=== PATIENT | female | born 1980 | race Hispanic/Latino ===

== ENCOUNTER 2018-02-07 17:58 | Emergency (ER) | payer BC ==
[2018-02-07] MEDS ORDERED: MAGNE/ALUM HYDROXD 30 ML UCUP ONE (19:08)
[2018-02-07] MEDS ORDERED: LIDOCAINE VISCOUS 2% SOLN 15 ML UDC ONE (19:09)
[2018-02-07] MEDS ORDERED: MORPHINE 4 MG/ML SYR ONE ×2 (19:09→20:17)
[2018-02-07] MEDS ORDERED: ONDANSETRON 4 MG/2 ML VIAL ONE (19:09)
[2018-02-07] MEDS ORDERED: NA CHLORIDE 0.9% 1,000 ML ONE ×2 (19:09→20:17)
[2018-02-07] MEDS ORDERED: FAMOTIDINE 20 MG/2 ML VIAL IV ONE (19:09)
[2018-02-07 19:14] LABS: Absolute Lymphocytes (CBC) 1.8 K/uL (0.7-4.9); Absolute Monocytes 0.4 K/uL (0.1-1.3); Absolute Neutrophil 5.2 K/uL (1.8-8.0); Basophils % 0.4 % (0-1.3); Eosinophils % 0.8 % (0-4.4); Lymphocytes % 24.1 % (15.3-44.8); MCH 21.6 pg (27.0-35.0); MCV 67.4 fL (80-100); MPV 8.6 fL (7.6-11.3); Monocytes % 5.5 % (3.3-12.3); RBC Red Blood Cell Count 4.74 M/uL (3.86-4.86)
[2018-02-07 19:26] LABS: ALT/SGPT 29 U/L (12-78); AST/SGOT 17 U/L (15-37); Albumin 3.7 g/dL (3.4-5.0); Alkaline Phosphatase 64 U/L (45-117); Amylase Level 81 U/L (25-115); BUN Blood Urea Nitrogen 12 mg/dL (7-18); Bicarbonate 29 mmol/L (21-32); Bilirubin Direct < 0.1 mg/dL (0-0.2); Bilirubin Total 0.4 mg/dL (0.2-1.0); Glucose Level 96 mg/dL (74-106); Lipase 162 U/L (73-393); Potassium 3.3 mmol/L (3.5-5.1); Protein, Total 7.6 g/dL (6.4-8.2); Sodium Level 141 mmol/L (136-145)
[2018-02-07 20:11] LABS: Blood Morphology Comment NOTED (NOT SEEN); Platelet Estimate ADEQ; Urine White Blood Cell Casts OK
[2018-02-07 20:12] LABS: Anisocytosis 1+; Hypochromasia 1+
[2018-02-07] MEDS ORDERED: PANTOPRAZOLE 40 MG INJ ONE (20:17)
[2018-02-07] MEDS ORDERED: METOCLOPRAMIDE 10 MG/2mL INJ ONE (20:17)
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
--- NOTE | 2018-02-07 21:10 | EDPHYS ---
Physician Documentation [facility] Name: Anastasia Mai Age: 37 yrs Sex: Female : 1980 Arrival Date: 02/07/2018 Time: 18:02 Bed 6 Private MD: None, None ED Physician Waqas Lowe HPI: 02/07 18:56 This 37 yrs old Female presents to ER via Ambulatory with complaints of ma2 Vomiting. 18:56 The patient presents to the emergency department with nausea, vomiting, abdominal pain, ma2 of the epigastric area. Onset: The symptoms/episode began/occurred gradually, 1 day(s) ago. Associated signs and symptoms: Pertinent negatives: anorexia, belching, diarrhea, GI bleeding. Severity of symptoms: At their worst the symptoms were moderate. The patient has experienced similar episodes in the past. 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 - Social history:: Smoking status: Patient/guardian denies using tobacco, Patient/guardian denies using alcohol, street drugs, The patient lives with family. - Ebola Screening: : No symptoms or risks identified at this time. - Family history:: not pertinent. ROS: 18:56 Constitutional: Negative for fever, chills, and weight loss, Eyes: Negative for injury, ma2 pain, redness, and discharge, Cardiovascular: Negative for chest pain, palpitations, and edema, Respiratory: Negative for shortness of breath, cough, wheezing, and pleuritic chest pain, Abdomen/GI: Negative for abdominal pain, nausea, diarrhea, and constipation, Back: Negative for injury and pain. 18:56 Abdomen/GI: Positive for abdominal pain, vomiting, Negative for constipation, flatulence. Exam: 18:56 Constitutional: This is a well developed, well nourished patient who is awake, alert, ma2 and in no acute distress. Head/Face: Normocephalic, atraumatic. ENT: Nares patent. No nasal discharge, no septal abnormalities noted. Tympanic membranes are normal and external auditory canals are clear. Oropharynx with no redness, swelling, or masses, exudates, or evidence of obstruction, uvula midline. Mucous membranes moist. Chest/axilla: Normal chest wall appearance and motion. Nontender with no deformity. No lesions are appreciated. Cardiovascular: Regular rate and rhythm with a normal S1 and S2. No gallops, murmurs, or rubs. Normal PMI, no JVD. No pulse deficits. Respiratory: Lungs have equal breath sounds bilaterally, clear to auscultation and percussion. No rales, rhonchi or wheezes noted. No increased work of breathing, no retractions or nasal flaring. Abdomen/GI: Soft, non-tender, with normal bowel sounds. No distension or tympany. No guarding or rebound. No evidence of tenderness throughout. Vital Signs: 18:06 BP 148 / 98; Pulse 74; Resp 16 S; Temp 97.0(TE); Pulse Ox 99% on R/A; Weight 54.43 kg aa5 (R); Height 4 ft. 11 in. (149.86 cm) (R); Pain 7/10; 19:15 BP 133 / 96; Pulse 69; Resp 14; Pulse Ox 99% on R/A; bp 20:23 BP 140 / 102; Pulse 74; Resp 18; Pulse Ox 99% on R/A; tl2 21:15 BP 121 / 84; Pulse 69; Resp 14; Pulse Ox 97% ; cc3 18:06 Body Mass Index 24.24 (54.43 kg, 149.86 cm) aa5 MDM: 18:50 Patient medically screened. ma2 18:56 Differential diagnosis: Nonspecific abd pain, gastritis, pancreatitis, viral ma2 gastroenteritis, gastroenteritis. 21:08 Data reviewed: vital signs, nurses notes, EMS record. Counseling: I had a detailed al2 discussion with the patient and/or guardian regarding: the historical points, exam findings, and any diagnostic results supporting the discharge/admit diagnosis, the presence of at least one elevated blood pressure reading (>120/80) during this emergency department visit, the need for outpatient follow up. Response to treatment: the patient's symptoms have resolved after treatment. 02/07 18:56 Order name: Amylase, Serum; Complete Time: 19:47 ma2 02/07 18:56 Order name: Basic Metabolic Panel; Complete Time: 19:47 ma2 02/07 18:56 Order name: CBC with Diff ma2 02/07 18:56 Order name: Creatinine for Radiology; Complete Time: 19:47 ma2 02/07 18:56 Order name: Hepatic Function; Complete Time: 19:47 ma2 02/07 18:56 Order name: Lipase; Complete Time: 19:47 ma2 02/07 19:19 Order name: CBC Smear Scan EDMS 02/07 18:56 Order name: IV Saline Lock; Complete Time: 18:59 ma2 02/07 18:56 Order name: Labs collected and sent; Complete Time: 18:59 ma2 Administered Medications: 19:05 Drug: NS 0.9% 1000 ml Route: IV; Rate: 1 bolus; Site: left antecubital; bp 20:21 Follow up: IV Status: Completed infusion; IV Intake: 1000ml tl2 21:28 Follow up: IV Status: Completed infusion; IV Intake: 1000ml cc3 19:05 Drug: Zofran 4 mg Route: IVP; Site: left antecubital; bp 20:20 Follow up: Response: Nausea is decreased bp 20:22 Follow up: Response: No adverse reaction; Nausea unchanged tl2 19:05 Drug: GI Cocktail without - (Maalox Suspension 30 ml, Lidocaine Liquid 2 % 15 bp ml) Route: PO; 20:20 Follow up: Response: Nausea is decreased bp 20:22 Follow up: Response: No adverse reaction; Pain is unchanged, physician notified tl2 19:05 Drug: Pepcid 20 mg Route: IVP; Site: left antecubital; bp 20:19 Follow up: Response: Pain is decreased bp 19:05 Drug: morphine 4 mg Route: IVP; Site: left antecubital; bp 20:19 Follow up: Response: Pain is decreased bp 20:22 Follow up: Response: No adverse reaction; Pain is unchanged, physician notified tl2 20:20 Drug: Pantoprazole 40 mg Route: IVP; Site: left antecubital; tl2 21:28 Follow up: Response: No adverse reaction cc3 20:20 Drug: morphine 4 mg Route: IVP; Site: left antecubital; tl2 21:27 Follow up: Response: Pain is decreased cc3 20:21 Drug: Reglan 10 mg Route: IVP; Site: left antecubital; tl2 21:27 Follow up: Response: No adverse reaction; Pain is decreased cc3 20:21 Drug: NS 0.9% 1000 ml Route: IV; Rate: 1 bolus; Site: left antecubital; tl2 21:28 Follow up: IV Status: Completed infusion; IV Intake: 1000ml cc3 Disposition: 02/07/18 21:09 Discharged to Home. Impression: Pain localized to upper abdomen. - Condition is Stable. - Prescriptions for Zofran 4 mg Oral Tablet - take 1 tablet by ORAL route every 12 hours As needed; 20 tablet. Pepcid 20 mg Oral Tablet - take 1 tablet by ORAL route once daily for 10 days; 10 tablet. - Work release form, Medication Reconciliation Form, Thank You Letter, Antibiotic Education, Prescription Opioid Use form. - Follow up: Private Physician; When: Tomorrow; Reason: Continuance of care. - Problem is chronic. - Symptoms have improved. Signatures: Dispatcher [employer] EDMS Collette Amanda RN RN aa5 Elyse Yadav RN RN tl2 Mian Garcia RN RN Waqas Lowe MD MD ma2 Aline Pollard cc3 Corrections: (The following items were deleted from the chart) 21:32 21:09 02/07/2018 21:09 Discharged to Home. Impression: Pain localized to upper abdomen. cc3 Condition is Stable. Forms are Medication Reconciliation Form, Thank You Letter, Antibiotic Education, Prescription Opioid Use. Follow up: Private Physician; When: Tomorrow; Reason: Continuance of care. Problem is chronic. Symptoms have improved. ma2
== END 2018-02-07 21:32 | disposition home or self-care (01) ==
LOC: ER 17:58
DX: R10.13 Epigastric pain (principal); R11.10 Vomiting, unspecified
CPT/HCPCS: 36415; 80048; 80076; 82150; 83690; 85025; 96361; 96374; 96375; 99284; C9113; J2405; J2765; J7030

== ENCOUNTER 2018-10-05 17:22 | Emergency (ER) | payer BC ==
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
== END 2018-10-05 19:40 | disposition home or self-care (01) ==
LOC: ER 17:22
DX: M79.10 Myalgia, unspecified site (principal); M25.572 Pain in left ankle and joints of left foot; M25.532 Pain in left wrist; V49.49XA Driver injured in collision with other motor vehicles in traffic accident, initial encounter; Z88.8 Allergy status to other drugs, medicaments and biological substances
CPT/HCPCS: 71045; 99283

== ENCOUNTER 2021-04-29 11:21 | Emergency (ER) | payer BC ==
--- OUTSIDE RECORDS SUMMARY | 2021-04-29 11:25 | XMS REPORT | Continuity of Care Document ---
:1980 Author Organization [facility] t Address [address] [place] [address] Care Team Providers Name Role Phone DR LUIS ANN Attending Clinician Unavailable RONEN, Aly Attending Clinician Unavailable Therapy, Covid Infusion Attending Clinician Unavailable Ronen ACUÑA, Aly Attending Clinician Doctor Unassigned, Name Attending Clinician Unavailable DR LUIS ANN Admitting Clinician Unavailable Payers Payer Name Policy Type Policy Number Effective Date Expiration Date S ource [facility] [id number] 2020 00:00:00 Problems This patient has no known problems. Allergies, Adverse Reactions, Alerts Allergy Allergy Status Severity Reaction(s) Onset Inactive Treating Comm ents Source Name Type Date Date Clinician NO KNOWN Drug Active Univers ALLERGIE Class ity of S [facility] Social History Social Habit Start Date Stop Date Quantity Comments Source Sex Assigned At [birth year] [facility] 00:00:00 00:00:00 [facility] Branch Smoking Status Start Date Stop Date Source Unknown if ever smoked [facility] Medications Ordered Filled Start Stop Current Ordering Indication Dosage Frequency Signature Comments Components Source Medication Medication Date Date Medication? Clinician (SIG) Name Name casirivimab 2020- No [id number] 1200mg Univers -imdevimab 01-02 ity of (REGEN-COV 14:15: 14:34 [place] (EUA)) 00 :00 Medical 1,200 mg in Branch NaCl 0.9% (NS) 60 mL IV infusion casirivimab 2020- No [id number] 1200mg 1,200 mg, Univers -imdevimab 01-02 IV ity of (REGEN-COV 14:15: 14:34 [place] (EUA[place] 00 :00 ONCE, [facility] 1,200 mg in 01/02/21 at [facility] NaCl 0.9% 0915, For (NS) 60 mL 1 IV infusion dose
Ad teaching specialists as an IV infusion via pump or gravity over at least 60 minutes through an intravenou s line containing a sterile, in-line or add-on 0.2-micron polyethers ulfone (PES) filter.&nb sp;Stable 36 hours refrigerat ed; 4 hours at room temperatur e. &nbs p;
Vital Signs Vital Name Observation Time Observation Value Comments Source Systolic blood 2021-01-02 15:35:00 137 mm[Hg] Univer sity [facility] Diastolic blood 2021-01-02 15:35:00 85 mm[facility]Hg[facility] 2021-01-02 15:35:00 66 /min [facility] Body temperature 2021-01-02 15:35:00 36.56 [facility] Respiratory rate 2021-01-02 15:35:00 18 /min [facility] Oxygen saturation in 2021-01-02 15:35:00 99 /min [facility] Arterial blood by [facility] Pulse oximetry [place] Body height 2021-01-02 13:06:00 149.9 cm [facility] Body weight 2021-01-02 13:06:00 55.339 kg [facility] BMI 2021-01-02 13:06:00 24.64 kg/m2 [facility] Procedures Procedure Date / Time Performed Performing Clinician Raymond joel [id number] CONSENT 2021-01-02 05:01:00 [facility]igned, [facility] Start End Encounter Admission Attending Care Care Encounter Source Date/Time Date/Time Type Type Clinicians Facility Department ID 2021-04-23 2021-04-23 Outpatient IAM WARNER TRAVRAHSC [id number] [facility] 13:51:00 18:55:00 [facility] 2021-02-24 2021-02-24 Outpatient IAM WARNER TRAVISASC [id number] [facility] 10:42:00 15:45:00 [facility] 2021-01-02 2021-01-02 Outpatient R RONEN [facility] [id number] Univers 08:00:00 08:00:00 STEVEN ity of [facility] 2021-01-02 2021-01-02 Nurse Therapy, Adc Covid Infusion [facility] [id number] Univers 07:19:32 07:49:32 Visit Steven Hardwick [id number] ity [id number] [facility] [id number] [facility] 053 Branch 2021-01-02 2021-01-02 Orders Doctor MALINDA [id number] Univers 00:00:00 00:00:00 Only Unassigned, LUKE [id number] ity of [place] [facility] [id number] Shamir as [id number] [facility] 009 Branch Results Test Description Test Time Test Comments Results Result Comments Source URINE MONOCLONALELITE 2021-02-24 12:59:00 Test Item Value Reference Range Interpretation Comme nts PREG UR (test code = PGU) NEGATIVE NEGATIVE
--- NOTE | 2021-04-29 12:00 | ER ---
Nurse's Notes [facility] Name: Anastasia Wiseman Age: 40 yrs Sex: Female : 1980 Arrival Date: 04/29/2021 Time: 11:22 Bed Waiting Private MD: Diagnosis: ED Course: 04/29 11:22 Patient arrived in ED. ds1 Administered Medications: No medications were administered Outcome: 12:00 Patient left the ED. ld1 Signatures: Iveth Marc ds1 Radha Alegria, RN RN ld1
== END 2021-04-29 12:00 | disposition left against medical advice (07) ==
LOC: ER 11:21
DX: Z02.9 Encounter for administrative examinations, unspecified (principal)

== ENCOUNTER 2022-04-21 07:36 | Day surgery (SDC) | payer BC ==
[2022-04-16 15:57] LABS: Absolute Lymphocytes (CBC) 2.1 K/uL (0.7-4.9); Hematocrit 31.3 % (36.0-45.0); Lymphocytes % 27.5 % (15.3-44.8); MCV 64.8 fL (80-100); MPV 8.5 fL (7.6-11.3); RBC Red Blood Cell Count 4.82 M/uL (3.86-4.86)
[2022-04-16 16:02] LABS: Protime INR 1.02
[2022-04-16 16:03] LABS: Blood Morphology Comment NOTED (NOT SEEN); Hypochromasia 1+; Platelet Estimate ADEQ; White Blood Cell Scan OK (OK)
[2022-04-16 16:11] LABS: Potassium 3.4 mmol/L (3.5-5.1)
--- NOTE | 2022-04-18 19:17 | EKG ---
Test Date: 2022-04-16 Test Time: 15:38:38 Elementary Spanish Teacher: OLENA MEASUREMENT RESULTS: Intervals: Rate: 63 UT: 156 QRSD: 66 QT: 412 QTc: 421 [place]: P: 73 UT: 156 QRS: 37 T: 36 INTERPRETIVE STATEMENTS: Normal sinus rhythm Nonspecific ST and T wave abnormality Abnormal ECG No previous ECG available for comparison Electronically Signed On 04-18-22 19:10:56 CAUSTIC STRENGTH INSPECTOR by Manny Horowitz
[2022-04-21] MEDS ORDERED: NA CHLORIDE 0.9% 500 ML ONE (07:43)
[2022-04-21] MEDS ORDERED: HEPA 1000U/500MLS 2,000 UNIT/1,000 ML BAG IV ONE (08:31)
[2022-04-21] MEDS ORDERED: LIDOCAINE 1% 20 ML MDV ONE (08:31)
[2022-04-21] MEDS ORDERED: ATROPINE SULF 1 MG/10 ML SYR IV ONE (08:47)
[2022-04-21] MEDS ORDERED: FENTANYL CITR 100 MCG/2 ML ONE ×2 (08:47→10:07)
[2022-04-21] MEDS ORDERED: NITROGLYCERIN/D5W 25 MG/250 ML BTL IV ONE (08:47)
[2022-04-21] MEDS ORDERED: NA CHLORIDE 0.9% 0 ML IV ONE (08:47)
[2022-04-21] MEDS ORDERED: MIDAZOLAM HCL 2 MG/2 ML INJ ONE (08:47)
[2022-04-21] MEDS ORDERED: NITROGLYCERIN 100 MCG/ML SYR (for cath lab use only) IV ONE (08:47)
[2022-04-21 11:43] VITALS: O2SAT 99
[2022-04-21 11:44] VITALS: BP 104/62
--- NOTE | 2022-04-21 17:53 | OP ---
Surgeon: Manny Horowitz MD Machine Setter Automatic: Ms. Madeline Cheatham. The patient will remain in the hospital for 2 hours of bedrest. After her Angio-Seal, she will go ho me and I will see her in the office in the next week or 2. Admitted as an outpatient on 04/21/2022 for left heart catheterization, selective coronary arteriogra m and common femoral artery angiogram. Indication: Abnormal stress test atypical chest pain. Procedure In Detail: Ms. Wiseman is 41, brought to the label drier today as an outpatient, prepped an d draped in routine sterile fashion. Given Versed and fentanyl for sedation. A 6-Upper Sorbian sheath intr oduced in the right common femoral artery successfully using the Seldinger technique and 10 cc of Xyl ocaine. Juan catheter left and right were used to cannulate the left main and right main respecti vely. Her left main was normal. Her circumflex was normal, was left dominant. She had a 20% proxim al LAD stenosis. The RCA was very small and nondominant. Common femoral artery angiogram was normal . Angio-Seal was used to close the case. Total conscious sedation was 30 minutes. Complications: None. Blood Loss: 5 cc. Postoperative Diagnosis: Minimal coronary artery disease. Plan: To continue medical therapy. Consider starting low-dose statin. KARL/CEZAR Voice ID: [id number] Report ID: [id number]
== END 2022-04-21 11:46 | disposition home or self-care (01) ==
LOC: OR 07:36 → CCL 11:46
DX: I25.10 Atherosclerotic heart disease of native coronary artery without angina pectoris (principal); I10 Essential (primary) hypertension; E78.2 Mixed hyperlipidemia; Z79.899 Other long term (current) drug therapy; Z88.8 Allergy status to other drugs, medicaments and biological substances; Z91.09 Other allergy status, other than to drugs and biological substances; Z82.49 Family history of ischemic heart disease and other diseases of the circulatory system
CPT/HCPCS: 93005; 85025; 80048; 36415; 85610; 85730; 93454; C1893; Q9966; C1760; G0269; J2250; J3010 ×2; J7040; J1644; J0461; J0583

== ENCOUNTER 2023-04-27 12:33 | Emergency (ER) | payer OTHER ==
--- OUTSIDE RECORDS SUMMARY | 2023-04-27 12:37 | XMS REPORT | Continuity of Care Document ---
:1980 Author Organization [facility] t Address [address] [place] [id number] Care Team Providers Name Role Phone LIAN WELLER Primary Care Physician UnavailROYA Reese Attending Clinician Unavailable YADY ANDREWS Attending Clinician Unavailable YADY ANDREWS Attending Clinician Unavailable Blanka Arreguin MD Attending Clinician Ree Powell MA Attending Clinician Unavailable BLANKA ARREGUIN Attending Clinician Unavailable [email or web address]_S Attending Clinician Unavailable Doctor Unassigned, [place] Attending Clinician Unavailable DR KLEBER ANN Attending Clinician Unavailable STEVEN HARDWICK Attending Clinician Unavailable Therapy, [facility]fusion Attending Clinician Unavailable Steven Hardwick MD Attending Clinician [email or web address]_S Admitting Clinician Unavailable DR KLEBER ANN Admitting Clinician Unavailable Payers Payer Name Policy Type Policy Number Effective Date Expiration Date S gwen [facility] [id number] 2020 00:00:00 [facility] [id number] 2023 PPO 00:00:00 [facility] [id number] Problems Condition Condition Condition Status Onset Resolution Last Treating Co mments Source Name Details Category Date Date Treatment Clinician Date Fatty Fatty Disease Active 2022-05 [facility] liver liver 06-02 [facility] 00:00: t & Plan: Medical 00 [facility] g of this note might be different from the original. Fatty liver risk factors noted to be heavy daily alcohol use and hyperlipi demia. Fatty liver was diagnosed by high level CT 12/2021 and noted to be severe on last CT chest done 04/2022. It is suspected the severity has increased with the daily alcohol use. Counselin g done on the need for abstinenc e from alcohol. Diet should be low in fat and medicatio ns may also be needed for control of hyperlipi demia which is an additiona l risk factor for fatty liver. High risk for progressi ve fibrosis with these 2 risk factors. Alcohol Alcohol Disease Active 2022-05 [facility] use use 06-02 [facility] disorder disorder 00:00: t & Plan: Med ical 00 [facility] g of this note might be different from the original. The patient continues to drink daily alcohol despite discussio ns with her treating physician s. She was prescribe d naltrexon e to curve her cravings which she reports she takes in the mornings prior to going to work but does not take in the evening so she can continue to drink. Counselin g done today on alcohol use disorder and need for rehab/sup port programs. Counselin g to follow the doctor's orders for the treatment to curve cravings. Literatur e provided. High risk for hepatic fibrosis and likely the cause of the severe hepatic steatosis . PETH ordered today to fully assess the level of alcohol that is being used. Abnormal Abnormal Disease Active 2022-05 [facility] enzymes 00:00: t & Plan: Medic al 00 [facility] g of this note might be different from the original. The liver enzymes were abnormal in a hepatocel lular pattern of injury. Diagnosed with fatty liver in the past by imaging with risk factors of heavy alcohol use over the last 5-6 years and hyperlipi demia. Fatty liver is the most common cause of liver enzyme elevation s in this pattern. A comprehen sive work up for any additiona l etiologie s is planned. Encounter Encounter Disease Active 2022-05 [facility] for for 06-01 [facility] screening screening 00:00: t & Plan: M edical for viral for viral 00 [facility] enter disease disease g of this note might be different from the original. Serologic al tests will be completed to determine the presence of immunity to hepatitis A and B. If the patient does not have adequate immunity, we would recommend administr ation of appropria te vaccinati on as per CDC guideline s by the primary care provider. Allergies, Adverse Reactions, Alerts Allergy Allergy Status Severity Reaction(s) Onset Inactive Treating Comm ents Source Name Type Date Date Clinician Adhesive DA Active Unknown Rash [facility] NO KNOWN Drug Active Univers ALLERGIE Class ity [facility] NO KNOWN Allergy Active [facility] Family History Family Member Diagnosis Comments Start Date Stop Date Source Natural father Cancer [facility] Natural mother Diabetes [facility] Natural sister Diabetes [facility] Social History Social Habit Start Date Stop Date Quantity Comments Source Sexual orientation [facility] Alcohol intake 2023-04-03 2023-04-03 [facility]00 of alcohol [facility] (finding) History of Social 2023-04-03 2023-04-[address] [facility] function 00:00:00 00:00:00 [facility] Tobacco use and 2023-04-01 2023-04-01 Smokeless tobacco [facility] exposure 00:00:00 00:00:00 non-user [facility] Sex Assigned At [address] [address] [facility] 00:00:00 00:[facility]00 [facility] Center Smoking Status Start Date Stop Date Source Tobacco smoking consumption [facility] Never smoked tobacco [facility] Medications Ordered Filled Start Stop Current Ordering Indication Dosage Frequency Signature Comments Components Source Medication Medication Date Date Medication? Clinician (SIG) Name Name gabapentin 2022-05 Yes 100mg [id number] Take [address] (NEURONTIN) 1-02 [id number] capsule [facility] 100 MG 10:00: 3D (100 mg Medical capsule 16 total) by Center mouth 3 (three) times daily. montelukast 2022-05 Yes 10mg QD Take [address] (SINGULAIR) 0-02 tablet (10 Rosa kes 10 mg 00:00: mg total) Medical tablet 00 by mouth Center daily. Arnuity Yes 1{puff} QD Take 1 [facility] Ellipta 200 9-19 puff by [facility]ukes mcg/actuati 00:00: mouth Medic al on DsDv 00 daily. Center bisoprolol- Yes 1{tbl} QD Take [address] hydroCHLORO 9-05 tablet by Asye es thiazide 00:00: mouth Medical (ZIAC) 00 daily. Center 5-6.25 mg per tablet omeprazole Yes 20mg QD Take 1 [facility] (PriLOSEC) 9-05 capsule [facility] 20 MG 00:00: (20 mg Medical capsule 00 total) by Center mouth daily. naltrexone Yes 50mg QD Take 1 [facility] (DEPADE) 50 8-11 tablet (50 Rosa [facility] mg tablet 00:00: mg total) Med ical 00 by mouth Center daily. casirivimab 2020- No [id number] 1200mg Univers -imdevimab 01-02 ity of (REGEN-COV 14:15: 14:34 [place] (EUA)) 00 :00 Medical 1,200 mg in Branch NaCl 0.9% (NS) 60 mL IV infusion casirivimab 2020- No [id number] 1200mg 1,200 mg, Univers -imdevimab 01-02 IV ity of (REGEN-COV 14:15: 14:34 [place] (EUA[place] 00 :00 ONCE, [facility] 1,200 mg in 01/02/21 at [facility] NaCl 0.9% 0915, For (NS) 60 mL 1 IV infusion dose
Ad fur mixer as an IV infusion via pump or gravity over at least 60 minutes through an intravenou s line containing a sterile, in-line or add-on 0.2-micron polyethers ulfone (PES) filter.&nb sp;Stable 36 hours refrigerat ed; 4 hours at room temperatur e. &nbs p;
Vital Signs Vital Name Observation Time Observation Value Comments Source Height 2021-04-23 14:24:00 121.92 CM Weight 2021-04-23 14:24:00 54.43 KG Height 2021-04-21 11:07:00 149.86 CM Weight 2021-04-21 11:07:00 55.79 KG Height 2021-02-24 11:05:00 147.32 CM Weight 2021-02-24 11:05:00 55.33 KG Height 2021-02-20 10:14:00 149.86 CM Weight 2021-02-20 10:14:00 56.24 KG Systolic blood 2021-01-02 15:35:00 137 mm[Hg] Univer sity of [facility] Diastolic blood 2021-01-02 15:35:00 85 mm[Hg] Unive rsity [facility] Heart rate 2021-01-02 15:35:00 66 /min [facility] Body temperature 2021-01-02 15:35:00 36.56 [facility] Respiratory rate 2021-01-02 15:35:00 18 /min [facility] Oxygen saturation in 2021-01-02 15:35:00 99 /min [facility] Arterial blood by [facility] Pulse oximetry Advance Body height 2021-01-02 13:06:00 149.9 cm [facility] Body weight 2021-01-02 13:06:00 55.339 kg [facility] BMI 2021-01-02 13:06:00 24.64 kg/m2 [facility] Systolic blood 2023-04-01 10:03:00 129 mm[Hg] [facility] Diastolic blood 2023-04-01 10:03:00 77 mm[Hg] [facility] Heart rate 2023-04-01 10:03:00 78 /min [facility] Body temperature 2023-04-01 10:03:00 36.33 Tara [facility] Respiratory rate 2023-04-01 10:03:00 18 /min [facility] Body height 2023-04-01 10:03:00 149.9 cm [facility] Body weight 2023-04-01 10:03:00 57.289 kg [facility] BMI 2023-04-01 10:03:00 25.51 kg/m2 [facility] Oxygen saturation in 2023-04-01 10:03:00 100 /min [facility] Arterial blood by Medical Ce ntelaine Pulse oximetry Procedures Procedure Date / Time Performing Clinician Source Performed US ABDOMEN COMPLETE 2023-04-15 09:39:55 Amber, [facility] [id number]\, 2023-04-01 10:38:00 Amber, [facility] SERUM [place] CERULOPLASMIN 2023-04-01 10:38:00 Amber, [facility] ACTIN (SMOOTH MUSCLE) 2023-04-01 10:38:00 Amber, [facility] ANTIBODY, IGG Center MITOCHONDRIA M2 ANTIBODY 2023-04-01 10:38:00 Amber, [facility] (IGG) [place] SOLUBLE LIVER ANTIGEN 2023-04-01 10:38:00 Amber, [facility] (SLA) [place] LIVER-KIDNEY MICROSOME AB 2023-04-01 10:38:00 Amber, [facility] COMPREHENSIVE METABOLIC 2023-04-01 10:37:00 Amber, [facility] BILIRUBIN, DIRECT 2023-04-01 10:37:00 Amber, [facility] CBC W/PLT COUNT & AUTO 2023-04-01 10:37:00 Amber, [facility] DIFFERENTIAL [place] HEPATITIS A ANTIBODY, IGG 2023-04-01 10:37:00 Amber, [facility] HEPATITIS A ANTIBODY, IGM 2023-04-01 10:37:00 Amber, [facility] HEPATITIS B SURFACE 2023-04-01 10:37:00 Amber, [facility] HEPATITIS B SURFACE 2023-04-01 10:37:00 Amber, [facility] ANTIBODY [place] HEPATITIS B CORE ANTIBODY, 2023-04-01 10:37:00 Amber, [facility] TOTAL Center HEPATITIS C ANTIBODY 2023-04-01 10:37:00 Amber, [facility] IRON, TIBC, % SAT. 2023-04-01 10:37:00 Amber, [facility] (WITHOUT FERRITIN) Center FERRITIN 2023-04-01 10:37:00 Amber, [facility] ANTI-NUCLEAR ANTIBODY 2023-04-01 10:37:00 Amber, [facility] (MECHE) Center PHOSPHATIDYLETHANOL, BLOOD 2023-04-01 10:37:00 Amber, [facility] IMMUNOGLOBULIN G (IGG) 2023-04-01 10:37:00 Amber, [facility] CMV PCR, QUANTITATIVE 2023-04-01 10:37:00 Amber, [facility] CYTOMEGALOVIRUS ANTIBODY, 2023-04-01 10:37:00 Amber, [facility] IGG Center EBV VIRAL LOAD 2023-04-01 10:37:00 Amber, [facility] EBV ANTIBODY, IGG 2023-04-01 10:37:00 Amber, [facility] MECHE TITER AND PATTERN 2023-04-01 10:37:00 Amber, [facility] CBC W/PLT COUNT & AUTO 2023-04-01 10:37:00 Amber, [facility] DIFFERENTIAL Center REFERRAL- REQUEST/RESPONSE 2023-03-30 05:01:00 Doctor Unassigned , [facility] [facility] EXC RT AUD OSSICLE TYLOR/ART 2021-04-23 00:00:00 [facility] Center EXCISION RIGHT AUDITORY 2021-02-24 00:00:00 [facility] OSSICLE OPN Center IMMTRAC2 CONSENT 2021-01-02 05:01:00 Doctor Unassigned, [facility] [facility] Plan of Care Planned Activity Planned Date Details Comments Source Future Scheduled 2024-04-03 [facility] Test 00:00:00 Counseling [facility]ening [facility] (12+) [code = Tobacco Cessation Counseling and Screening (12+)] Future Scheduled 2023-01-29 Influenza Vaccine (#1) [facility] 00:00:00 [code = Influenza Vaccine Me dical Center (#1)] Future Scheduled 2022-05-[address] [facility] Test 00:00:00 (12+) [code = DEPRESSION Med ical Center SCREENING (12+)] Future Scheduled 2000-12-28 Screening for malignant [facility] Test 00:00:00 neoplasm of cervix Medical C enter (procedure) [code = 191132802] Future Scheduled 1998-12-28 DTAP/TDAP/TD VACCINES ([address] [facility] Test 00:00:00 - Tdap) [code = Medical Cent er DTAP/TDAP/TD VACCINES (1 - Tdap)] Future Scheduled 1994-12-[address] [facility] Test 00:00:00 virus screening Medical Cent er (procedure) [code = 619110732] Future Scheduled 1985-12-28 Pneumococcal Vaccine: [facility] Test 00:00:00 0-64 Years (1 - PCV) Medical Center [code = Pneumococcal Vaccine: 0-64 Years (1 - PCV)] Future Scheduled 1980-06-30 COVID-19 VACCINE (#1) [facility] Test 00:00:00 [code = COVID-19 VACCINE [facility] (#[facility])] Encounters Start End Encounter Admission Attending Care Care Encounter Source Date/Time Date/Time Type Type Clinicians Facility Department ID 2023-05-04 2023-05-04 Outpatient R YADY ANDREWS [facility] [id number] [facility] 13:30:00 13:30:00 YADY ANDREWS [facility] 2023-04-15 2023-04-15 [facility] [id number] 09:05:12 23:59:00 Encounter Rise [facility] 2023-04-02 2023-04-02 Abstract Sherry [facility] [id number] [facility] 2023-04-01 2023-04-01 [facility] [id number] 09:00:00 10:00:00 Visit Blanka Vickers [facility] 2023-04-01 2023-04-01 Outpatient GC_GCBZW_Ka PRIV PRIV [id number] [facility] 00:00:00 00:00:00 diyala_S [id number] Medic al 2023-03-30 2023-03-30 Orders Doctor MALINDA [id number] Univers 00:00:00 00:00:00 Only Unassigned, LU[facility] [id number] [facility] [id number] Shamir as [id number] [place] [address] Branch 2021-04-23 2021-04-23 Outpatient Rosalio [facility] [id number] [facility] 13:51:00 18:55:00 [facility] 2021-02-24 2021-02-24 [facility] [id number] [facility] 10:42:00 15:45:00 [facility] 2021-01-02 2021-01-02 Outpatient Jaclyn [facility]ARDWICK [facility] [id number] Univers 08:00:00 08:00:00 STEVEN scott [facility] 2021-01-02 2021-01-02 Nurse Therapy, [facility] Covid Infusion [facility] [id number] Univers 07:19:32 07:49:32 Visit Steven Hardwick [id number] ity [place] [id number] [id number] [facility] 053 Branch 2021-01-02 2021-01-02 Orders Doctor MALINDA [id number] Univers 00:00:00 00:00:00 Only Unassigned, [place] [id number] [facility] [id number] Shamir as [id number] [address] Results Test Description Test Time Test Comments Results Result [facility] e Comments US abdomen 2023-03-[address] complete 6 Clinical History: Keila 16:05:02 Abnormal liver enzymes, M edical right upper quadrant Cent er pain Comparison: None Findings:Sonographic evaluation of the the abdomen is performed. The visualized pancreas appears unremarkable. The liver is normal in size measuring 16.9 cm in length. Hepaticechogenicity is diffusely increased suggestive of fatty infiltration.Geographic region of focal fatty sparing noted adjacent to thegallbladder. No suspicious focal hepatic abnormality is identified. Themain portal vein is patent with antegrade flow and diameter of 1.1 cm,within normal limits. The gallbladder is unremarkable. There is no evidence forcholelithiasis, wall thickening, or pericholecystic fluid. There is nointra or extrahepatic biliary ductal dilatation. The common bile ductmeasures 2 mm. Sonographic Rausch's sign is negative. The spleen is normal in size measuring 9.5 cm in length and demonstratesan unremarkable sonographic appearance. The kidneys are normal in size measuring 11.3 x 5.1 x 4.6 cm on theright and 11.0 x 5.2 x 4.6 cm on the left. Corticalthickness/echoge nicity is within normal limits. There is no evidence forsolid renal mass, hydronephrosis, or shadowing calculi. The visualized portions of the IVC and aorta are within normal limits. There is no ascites present. US ABDOMEN 2023-03-31 COMPLETE 6 16:05:02 [facility] : 1980 Sex: F Abdominal ultrasoundClinical History: Abnormal liver enzymes, right upper quadrant painComparison: NoneFindings:Sonographic evaluation of the the abdomen is performed.The visualized pancreas appears unremarkable.The liver is normal in size measuring 16.9 cm in length. Hepaticechogenicity is diffusely increased suggestive of fatty infiltration.Geographic region of focal fatty sparing noted adjacent to thegallbladder. No suspicious focal hepatic abnormality is identified. Themain portal vein is patent with antegrade flow and diameter of 1.1 cm,within normal limits.The gallbladder is unremarkable. There is no evidence forcholelithiasis, wall thickening, or pericholecystic fluid. There is nointra or extrahepatic biliary ductal dilatation. The common bile ductmeasures 2 mm. Sonographic Rausch's sign is negative.The spleen is normal in size measuring 9.5 cm in length and demonstratesan unremarkable sonographic appearance.The kidneys are normal in size measuring 11.3 x 5.1 x 4.6 cm on theright and 11.0 x 5.2 x 4.6 cm on the left. Corticalthickness/echoge nicity is within normal limits. There is no evidence forsolid renal mass, hydronephrosis, or shadowing calculi.The visualized portions of the IVC and aorta are within normal limits.There is no ascites present.IMPRESSION:Impre ssion:Sonographic findings suggestive of hepatic steatosis.Otherwise, unremarkable abdominal ultrasound examination. Electronically Signed By: Gurpreet Dumont MD04/15/2023 16:07 CDTWorkstation Name: [id number] EBV Viral Load 2023-04-03 13:25:31 Test Item Value Reference Range Interpretation Comme nts EBV Viral Load Negative or below the See_Comment [Au tomated message] The (test code = 2559) linear range of the sy stem which generated this assay (<500 IU /mL) result t ransmitted reference range: <500 - & gt;5,000,000 IU/mL. The refe rence range was not used to int erpret this result as melissa l/abnormal. [facility] [id number] 13:25:31 Test Item Value Reference Range Interpretation Comments EBV VIRAL LOAD - Negative or below See_Comment [Auto mated message] NEGATIVE (BEAKER) the linear range The sy stem which (test code = of the assay generated this 2559) (<500 IU /mL) result transmi tted reference range : <500 - >5,00 0,000 IU/mL. The refe rence range was not u sed to interpret th is result as normal/abnormal . CMV PCR, [id number] 13:19:14 Test Item Value Reference Range Interpretation Comments CMV VIRAL LOAD - Negative or below See_Comment [Auto mated message] NEGATIVE (BEAKER) the linear range The sy stem which (test code = of the assay generated this 2558) (<300 IU/mL) result transmit cindy reference range : <300 - >3,00 0,000 IU/mL. The refe rence range was not u sed to interpret th is result as normal/abnormal . MECHE TITER AND [id number] 15:21:25 Test Item Value Reference Range Interpretation Comments MECHE TITER (BEAKER) (test code = :160 1541) MECHE PATTERN (BEAKER) (test code = Speckled 1781) ANTI-NUCLEAR ANTIBODY (MECHE)2023-04-02 15:17:24 Test Item Value Reference Range Interpretation Comments ANTI-NUCLEAR ANTIBODY (MECHE) (BEAKER) Positive Negative A (test code = 418) Test performed by IFA method.CYTOMEGALOVIRUS ANTIBODY, [id number] 14:00:10 Test Item Value Reference Range Interpretation Comments CYTOMEGALOVIRUS, IGG (BEAKER) Positive Negative, Equivocal A (test code = 3429) CMV IgG Result Interpretation: </= 0.8 Al Negative 0.9-1.0 Al Equivocal >/=1.1 Al PositiveEBV ANTIBODY, [id number] 14:00:10 Test Item Value Reference Range Interpretation Comments OBDULIO ELIZABETH VIRAL CAPSID Positive Negative, Equivocal A ANTIGEN IGG (BEAKER) (test code = 3415) Obdulio Elizabeth Viral Capsid Antigen IgG Result Interpretation: </= 0.8 Al Negative 0.9-1.0 Al Equivocal >/= 1.1 Al [id number] 15:33:47 Test Item Value Reference Range Interpretation Comments FERRITIN (BEAKER) (test code = 17.17 ng/mL 5.00-275.00 361) Car Record Clerk ID - ADMINHEPATITIS C [id number] 14:47:17 Test Item Value Reference Range Interpretation Comments HEPATITIS C ANTIBODY (BEAKER) Nonreactive Nonreactive (test code = 367) Car Record Clerk ID - ADMINHEPATITIS B SURFACE [id number] 14:38:12 Test Item Value Reference Range Interpretation Comments HEPATITIS B SURFACE ANTIBODY < mIU/mL <8.0 (BEAKER) (test code = 647) Car Record Clerk ID - ADMINHEPATITIS A ANTIBODY, [id number] 14:32:34 Test Item Value Reference Range Interpretation Comments HEPATITIS A IGM ANTIBODY (BEAKER) Nonreactive Nonreactive (test code = 498) Car Record Clerk ID - ADMINHEPATITIS B CORE ANTIBODY, [id number] 14:32:34 Test Item Value Reference Range Interpretation Comments HEPATITIS B CORE TOTAL ANTIBODY Nonreactive Nonreactive (BEAKER) (test code = 497) Car Record Clerk ID - ADMINHEPATITIS A ANTIBODY, [id number] 14:32:34 Test Item Value Reference Range Interpretation Comments HEPATITIS A IGG ANTIBODY (BEAKER) Nonreactive Nonreactive (test code = 2797) Car Record Clerk ID - ADMINHEPATITIS B SURFACE [id number] 14:32:29 Test Item Value Reference Range Interpretation Comments HEPATITIS B SURFACE ANTIGEN (2) Nonreactive Nonreactive (BEAKER) (test code = 2585) Specimen is considered negative for HBsAg.IRON, TIBC, % SAT. (WITHOUT FERRITIN) 2023-04-01 14:07:01 Test Item Value Reference Range Interpretation Comments IRON (BEAKER) (test code = 547) 15.0 ug/dL 40.0-160.0 L TOTAL IRON BINDING CAPACITY 561 ug/dL 250-450 H (BEAKER) (test code = 769) IRON % SATURATION (2) (BEAKER) 3 % 20-55 L (test code = 2590) Car Record Clerk ID - ADMINIMMUNOGLOBULIN G (IGG)2023-04-01 14:04:23 Test Item Value Reference Range Interpretation Comments IMMUNOGLOBULIN G (IGG) (BEAKER) 1212 mg/dL 540-1822 (test code = 427) Car Record Clerk ID - [id number] 14:01:41 Test Item Value Reference Range Interpretation Comments ALPHA-1 ANTITRYPSIN (BEAKER) 161.60 mg/dL 90.00-200.00 (test code = 502) Car Record Clerk ID - ADMINCOMPREHENSIVE METABOLIC [id number] 13:15:50 Test Item Value Reference Range Interpretation Comments TOTAL PROTEIN 8.2 gm/dL 6.0-8.3 (BEAKER) (test code = 770) ALBUMIN (BEAKER) 4.6 g/dL 3.5-5.0 (test code = 1145) ALKALINE 50 U/L 40-150 PHOSPHATASE (BEAKER) (test code = 346) BILIRUBIN TOTAL 0.2 mg/dL 0.2-1.2 (BEAKER) (test code = 377) SODIUM (BEAKER) 142 meq/L 136-145 (test code = 381) POTASSIUM (BEAKER) 4.2 meq/L 3.5-5.1 (test code = 379) CHLORIDE (BEAKER) 107 meq/L 98-107 (test code = 382) CO2 (BEAKER) (test 24 meq/L 22-29 code = 355) BLOOD UREA 9 mg/dL 7-21 NITROGEN (BEAKER) (test code = 354) CREATININE 0.74 mg/dL 0.57-1.25 (BEAKER) (test code = 358) GLUCOSE RANDOM 96 mg/dL 70-105 (BEAKER) (test code = 652) CALCIUM (BEAKER) 9.0 mg/dL 8.4-10.2 (test code = 697) AST (SGOT) 69 U/L 5-34 H (BEAKER) (test code = 353) ALT (SGPT) 112 U/L 6-55 H (BEAKER) (test code = 347) EGFR (BEAKER) 103 Interpretatio n of eGFR (test code = 1092) mL/min/1.[address] age Description sq m Result G1 Melissa l or high >=90 G2 Mildly decreased 60-89 G3a Mildl y to moderately 45-5 9 G3b Moderately to s everely 30-44 G4 Severl y decreased 15-29 G5 Kidne y failure <15Reported eGF R is based on the CKD-EPI 2021 equation that d oes not use a race coefficientEsti mated GFR is not as accur ate as Creatinine Samanta jensen in predicting glom erular filtration rate . Estimated GFR is not appl icable for dialysis patien ts Car Record Clerk ID - ADMINOperator ID - ADMINBILIRUBIN, [id number] 11:58:50 Test Item Value Reference Range Interpretation Comments BILIRUBIN DIRECT (BEAKER) (test 0.1 mg/dL 0.1-0.5 code = 706) Car Record Clerk ID - ADMINCBC W/PLT COUNT & AUTO [id number] 11:39:12 Test Item Value Reference Range Interpretation Comments WHITE BLOOD CELL COUNT 6.1 K/ L 3.5-10.5 (BEAKER) (test code = 775) RED BLOOD CELL COUNT 4.88 M/ L 3.93-5.22 (BEAKER) (test code = 761) HEMOGLOBIN (BEAKER) 8.0 GM/DL 11.2-15.7 L (test code = 410) HEMATOCRIT (BEAKER) 30.1 % 34.1-44.9 L (test code = 411) MEAN CORPUSCULAR 62 fL 79-95 L VOLUME (BEAKER) (test code = 753) MEAN CORPUSCULAR 16.4 pg 25.6-32.2 L HEMOGLOBIN (BEAKER) (test code = 751) MEAN CORPUSCULAR 26.6 GM/DL 32.2-35.5 L HEMOGLOBIN CONC (BEAKER) (test code = 752) RED CELL DISTRIBUTION 22.1 % 11.7-14.4 H WIDTH (BEAKER) (test code = 412) PLATELET COUNT 357 K/CU MM 150-450 (BEAKER) (test code = 756) MEAN PLATELET VOLUME Unable to report due (BEAKER) (test code = to abn ormal Platelet 754) population distribution. NUCLEATED RED BLOOD 0 /100 WBC 0-0 CELLS (BEAKER) (test code = 413) NEUTROPHILS RELATIVE 62 % PERCENT (BEAKER) (test code = 429) LYMPHOCYTES RELATIVE 30 % PERCENT (BEAKER) (test code = 430) MONOCYTES RELATIVE 5 % PERCENT (BEAKER) (test code = 431) EOSINOPHILS RELATIVE 2 % PERCENT (BEAKER) (test code = 432) BASOPHILS RELATIVE 1 % PERCENT (BEAKER) (test code = 437) NEUTROPHILS ABSOLUTE 3.75 K/ L 1.56-6.13 COUNT (BEAKER) (test code = 670) LYMPHOCYTES ABSOLUTE 1.80 K/ L 1.18-3.74 COUNT (BEAKER) (test code = 414) MONOCYTES ABSOLUTE 0.33 K/ L 0.24-0.36 COUNT (BEAKER) (test code = 415) EOSINOPHILS ABSOLUTE 0.13 K/ L 0.04-0.36 COUNT (BEAKER) (test code = 416) BASOPHILS ABSOLUTE 0.05 K/ L 0.01-0.08 COUNT (BEAKER) (test code = 417) IMMATURE 0.30 % 0.00-1.00 GRANULOCYTES-RELATIVE PERCENT (BEAKER) (test code = 2801) URINE MONOCLONALELITE2021-02-24 12:59:00 Test Item Value Reference Range Interpretation Comments PREG UR (test code = PGU) NEGATIVE NEGATIVE
--- NOTE | 2023-04-27 13:38 | RAD REPORT ---
EXAM DESCRIPTION: US - Abdomen Exam Limited - 04/27/2023 1:24 pm CLINICAL HISTORY: ABD PAIN COMPARISON: <Comparisons> FINDINGS: The gallbladder demonstrates no gallstones. No pericholecystic fluid or gallbladder wall t hickening. The common bile duct is normal measuring 3 mm. The liver demonstrates no findings of intrahepatic biliary dilatation. IMPRESSION: Unremarkable examination.
[2023-04-27 14:25] LABS: Absolute Lymphocytes (CBC) 0.7 K/uL (0.7-4.9); Hematocrit 29.2 % (36.0-45.0); MCV 60.5 fL (80-100); MPV 8.5 fL (7.6-11.3); Platelets 238 thou/uL (152-406); RBC Red Blood Cell Count 4.82 M/uL (3.86-4.86)
[2023-04-27] MEDS ORDERED: ONDANSETRON 4 MG/2 ML VIAL ONE (14:40)
[2023-04-27] MEDS ORDERED: IBUPROFEN 200 MG TAB PO ONE (14:40)
[2023-04-27] MEDS ORDERED: NA CHLORIDE 0.9% 1,000 ML ONE (14:40)
[2023-04-27] MEDS ORDERED: FAMOTIDINE 20 MG/2 ML VIAL IV ONE (14:40)
[2023-04-27] MEDS ORDERED: IBUPROFEN 400 MG TAB ONE (14:40)
[2023-04-27 14:44] LABS: Albumin 3.7 g/dL (3.4-5.0); Bilirubin Total 0.3 mg/dL (0.2-1.0); Protein, Total 8.1 g/dL (6.4-8.2)
[2023-04-27] MEDS ORDERED: POTASSIUM CL SA 10 MEQ TAB PO ONE (15:16)
[2023-04-27] MEDS ORDERED: MORPHINE 4 MG/ML SYR ONE (16:04)
[2023-04-27] MEDS ORDERED: METOCLOPRAMIDE 10 MG/2mL INJ ONE (16:04)
--- NOTE | 2023-04-27 16:28 | ER ---
Nurse's Notes [facility] Name: Anastasia Wiseman Age: 42 yrs Sex: Female : 1980 Arrival Date: 04/27/2023 Time: 12:33 Bed 19 Private MD: Alex Devries V Diagnosis: Nausea with vomiting, unspecified;Influenza due to identified novel influenza A virus;Upper abdominal pain, unspecified Presentation: 04/27 12:47 Chief complaint: Patient states: "I went to urgent care and I was diagnosed with the aa5 flu, I called my doctor and he said to come here because I can't keep anything down". Pt reports nausea/vomiting and abd pain since Wednesday. Pt reports she had a negative CT scan of abdomen at urgent care and reports has been taking Zofran ODT. Coronavirus screen: congestion, cough unrelated to allergies. Ebola Screen: Patient denies travel to an Ebola-affected area in the 21 days before illness onset. Initial Sepsis Screen: Does the patient meet any 2 criteria? HR > 90 bpm. Does the patient have a suspected source of infection? No. Patient's initial sepsis screen is negative. Risk Assessment: Do you want to hurt yourself or someone else? Patient reports no desire to harm self or others. Onset of symptoms was March 2023. 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 - Social history:: Smoking status: Patient denies any tobacco usage or history of. Screenin:37 [facility] ED Fall Risk Assessment (Adult) Score/Fall Risk Level 0 - 2 = Low Risk nj1 Oriented to surroundings, Maintained a safe environment, Hourly rounding (assess needs \\T\\ fall precautionary measures) done. Abuse screen: Denies threats or abuse. Denies injuries from another. Nutritional screening: No deficits noted. Tuberculosis screening: No symptoms or risk factors identified. Assessment: 14:30 General: Appears in no apparent distress. uncomfortable, Behavior is calm, cooperative, nj1 appropriate for age. Pain: Complains of pain in abdomen Pain currently is 10 out of 10 on a pain scale. Neuro: Level of Consciousness is awake, alert, obeys commands, Oriented to person, place, time, situation. Cardiovascular: Patient's skin is warm and dry. Respiratory: Airway is patent Respiratory effort is even, unlabored. GI: Reports nausea, vomiting, Abdominal pain. 15:55 Reassessment: Patient appears in no apparent distress at this time. Patient and/or nj1 family updated on plan of care and expected duration. Pain level reassessed. Patient is alert, oriented x 3, equal unlabored respirations, skin warm/dry/pink. 17:19 Reassessment: Patient appears in no apparent distress at this time. Patient and/or iw family updated on plan of care and expected duration. Pain level reassessed. Patient is alert, oriented x 3, equal unlabored respirations, skin warm/dry/pink. Patient states feeling better. Patient states symptoms have improved. Vital Signs: 12:47 BP 136 / 97; Pulse 94; Resp 19 S; Temp 98.2(TE); Pulse Ox 100% on R/A; Weight 55.34 kg aa5 (R); Height 4 ft. 11 in. (R); 14:19 Temp 100.2(O); em1 15:55 Pulse 89; Resp 16; Pulse Ox 100% ; Pain 9/10; nj1 16:10 BP 121 / 89; Pulse 84; Resp 16; Temp 98.8(O); Pulse Ox 100% ; Pain 5/10; nj1 12:47 Body Mass Index 24.64 (55.34 kg, 149.86 cm) aa5 15:55 Pain Scale: Adult nj1 16:10 Pain Scale: Adult nj1 Vitals: 17:19 Cardiac Rhythm Assessment Regular. ED Course: 12:35 Patient arrived in ED. mr 12:35 [facility] kb 12:35 Donnell Shook DO is Attending Physician. kb 12:35 Alex Devries MD is Private Physician. mr 12:47 Arm band placed on. aa5 12:48 Triage completed. aa5 13:26 US Abdomen Limited In Process Unspecified. EDMS 14:06 Melissa Fields, HARRY is Primary Nurse. nj1 14:18 CBC with Diff Sent. em1 14:18 CMP Sent. em1 14:18 Lipase Sent. em1 14:19 Initial lab(s) drawn, by me, sent to lab. Inserted saline lock: 20 gauge in left em1 antecubital area, using aseptic technique. Blood collected. 14:38 Patient has correct armband on for positive identification. Bed in low position. Call nj1 light in reach. Adult w/ patient. Provided Education on: call light, fall precautions. 16:27 Alex Devries MD is Referral Physician. kb 16:27 Referral Physician role handed off by Alex Devries MD kb 16:27 Alex Devries MD is Referral Physician. kb 17:19 No provider procedures requiring assistance completed. IV discontinued, intact, iw bleeding controlled, No redness/swelling at site. Pressure dressing applied. Administered Medications: 14:30 Drug: NS 0.9% IV 1000 ml IV at 1 bolus Per protocol; 1000 mL bolus Route: IV; Rate: 1 nj1 bolus; Site: left antecubital; 15:30 Follow up: Response: No adverse reaction; IV Status: Completed infusion; IV Intake: nj1 1000ml 14:30 Drug: Ondansetron IVP 4 mg IVP once; over 2 minutes Route: IVP; Site: left antecubital; nj1 15:00 Follow up: Response: No adverse reaction; Nausea is decreased nj1 14:32 Drug: Famotidine IVP 20 mg IVP once; dilute with 10 mL 0.9% NaCl; give over 2 minutes nj1 Route: IVP; Site: left antecubital; 15:00 Follow up: Response: No adverse reaction nj1 15:12 Drug: Potassium Chloride PO 40 mEq PO once Route: PO; mb9 15:53 Drug: metoCLOPramide IVP 10 mg IVP once; over 1 to 2 minutes Route: IVP; Site: left nj1 antecubital; 16:11 Follow up: Response: No adverse reaction; Nausea is decreased nj1 15:55 Drug: morphine IVP or IV 4 mg IVP once over 4 mins Route: IVP; Infused Over: 4 mins; nj1 Site: left antecubital; 16:11 Follow up: Response: No adverse reaction; Pain is decreased nj1 Medication: 17:19 VIS not applicable for this client. iw Intake: 15:30 IV: 1000ml; Total: 1000ml. nj1 Outcome: 16:27 Discharge ordered by MD. east 17:19 Discharged to home ambulatory, with family, iw 17:19 Condition: good 17:19 Discharge instructions given to patient, family, Instructed on discharge instructions, follow up and referral plans. Demonstrated understanding of instructions, 17:20 Patient left the ED. iw Signatures: Dispatcher [employer] EDMS Sada Ponce, PROPELLER ENGINEER-C PROPELLER ENGINEER-Ckb Jade Baltazar, Reg Reg mr Sarah Matta, RN RN iw Preet Elmore em1 Collette Amanda RN RN aa5 Jade Salazar, RN RN mb9 Melissa Fields RN RN nj1 Corrections: (The following items were deleted from the chart) 12:50 12:47 Chief complaint: Patient states: "I went to urgent care and I was diagnosed with aa5 the flu, I called my doctor and he said to come here because I can't keep anything down". Pt reports nausea/vomiting and abd pain since Wednesday. aa5
--- NOTE | 2023-04-27 16:28 | EDPHYS ---
Physician Documentation [facility] Name: Anastasia Wiseman Age: 42 yrs Sex: Female : 1980 Arrival Date: 04/27/2023 Time: 12:33 Bed 19 Private MD: Alex Devries V ED Physician Donnell Shook HPI: 04/27 13:31 This 42 yrs old Female presents to ER via Ambulatory with complaints of Flu+, kb Vomiting. 13:31 Pt is a 42 year old female who presents for upper abd pian, nausea and vomiting that kb started 4 days ago. States she was seen on day of onset at [place] [facility], had normal labs and CT, tested positive for flu. States she has still been unable to tolerate anything by mouth. Went to Dr Devries and was told to come to the ED for eval and possible admission if she cannot tolerate oral intake after treatment. 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 - Social history:: Smoking status: Patient denies any tobacco usage or history of. ROS: 13:31 Constitutional: Negative for fever, chills, and weight loss, kb 13:32 Abdomen/GI: Positive for abdominal pain, nausea and vomiting, kb 13:32 All other systems are negative, Exam: 13:33 Constitutional: This is a well developed, well nourished patient who is awake, alert, kb and in no acute distress. Head/Face: Normocephalic, atraumatic. ENT: Moist Mucous membranes Respiratory: Respirations even and unlabored. No increased work of breathing. Talking in full sentences Skin: Warm, dry with normal turgor. Normal color. MS/ Extremity: Pulses equal, no cyanosis. Neurovascular intact. Full, normal range of motion. Neuro: Awake and alert, GCS 15, oriented to person, place, time, and situation. Moves all extremities. Normal gait. 13:33 Abdomen/GI: Inspection: abdomen appears normal, Bowel sounds: normal, Palpation: soft, in all quadrants, mild abdominal tenderness, in the right upper quadrant and left upper quadrant, Vital Signs: 12:47 BP 136 / 97; Pulse 94; Resp 19 S; Temp 98.2(TE); Pulse Ox 100% on R/A; Weight 55.34 kg aa5 (R); Height 4 ft. 11 in. (R); 14:19 Temp 100.2(O); em1 15:55 Pulse 89; Resp 16; Pulse Ox 100% ; Pain 9/10; nj1 16:10 BP 121 / 89; Pulse 84; Resp 16; Temp 98.8(O); Pulse Ox 100% ; Pain 5/10; nj1 12:47 Body Mass Index 24.64 (55.34 kg, 149.86 cm) aa5 15:55 Pain Scale: Adult nj1 16:10 Pain Scale: Adult nj1 MDM: 12:35 Patient medically screened. kb 13:34 Differential diagnosis: Nonspecific abd pain, gastritis, cholecystitis, pancreatitis, kb flu. Data reviewed: vital signs, nurses notes. 16:26 Counseling: I had a detailed discussion with the patient and/or guardian regarding the kb historical points, exam findings, and any diagnostic results supporting the discharge/admit diagnosis, lab results, radiology results, the need for outpatient follow up, a family practitioner, a cap parts cutter, to return to the emergency department if symptoms worsen or persist or if there are any questions or concerns that arise at home. ED course: Pt is feeling better and would like to go home. Stable for discharge. 04/27 12:50 Order name: CBC with Diff kb 04/27 12:50 Order name: CMP; Complete Time: 14:47 kb 04/27 12:50 Order name: Lipase; Complete Time: 14:47 kb 04/27 12:50 Order name: US Abdomen Limited; Complete Time: 13:48 kb 04/27 12:50 Order name: IV Saline Lock; Complete Time: 14:18 kb 04/27 12:50 Order name: Labs collected and sent; Complete Time: 14:18 kb 04/27 14:47 Order name: PO challenge; Complete Time: 15:12 kb Administered Medications: 14:30 Drug: NS 0.9% IV 1000 ml IV at 1 bolus Per protocol; 1000 mL bolus Route: IV; Rate: 1 nj1 bolus; Site: left antecubital; 15:30 Follow up: Response: No adverse reaction; IV Status: Completed infusion; IV Intake: nj1 1000ml 14:30 Drug: Ondansetron IVP 4 mg IVP once; over 2 minutes Route: IVP; Site: left antecubital; nj1 15:00 Follow up: Response: No adverse reaction; Nausea is decreased nj1 14:32 Drug: Famotidine IVP 20 mg IVP once; dilute with 10 mL 0.9% NaCl; give over 2 minutes nj1 Route: IVP; Site: left antecubital; 15:00 Follow up: Response: No adverse reaction nj1 15:12 Drug: Potassium Chloride PO 40 mEq PO once Route: PO; mb9 15:53 Drug: metoCLOPramide IVP 10 mg IVP once; over 1 to 2 minutes Route: IVP; Site: left nj1 antecubital; 16:11 Follow up: Response: No adverse reaction; Nausea is decreased nj1 15:55 Drug: morphine IVP or IV 4 mg IVP once over 4 mins Route: IVP; Infused Over: 4 mins; nj1 Site: left antecubital; 16:11 Follow up: Response: No adverse reaction; Pain is decreased nj1 Disposition: 16:51 I was immediately available on-site in the Emergency Department for consultation in the ms3 care of the patient. Disposition Summary: 04/27/23 16:27 Discharge Ordered Notes: Location: Home kb Condition: Stable kb Diagnosis - Nausea with vomiting, unspecified kb - Influenza due to identified novel influenza A virus kb - Upper abdominal pain, unspecified kb Followup: kb - With: Emergency Department - When: As needed - Reason: Worsening of condition Followup: kb - With: Alex Devries MD - When: 2 - 3 days - Reason: Recheck today's complaints, Continuance of care, Re-evaluation by your physician Discharge Instructions: - Discharge Summary Sheet kb - Nausea and Vomiting, Adult, [id number] kb - Abdominal Pain, Adult, [id number] kb Forms: - Medication Reconciliation Form kb - Thank You Letter kb - Antibiotic Education kb - Prescription Opioid Use kb - Patient Portal Instructions kb - Leadership Thank You Letter kb Signatures: Dispatcher [employer] EDSada Duke, MAVIS-C MAVIS-Collette Rowe RN RN aa5 Donnell Shook DO DO ms3 Jade Salazar, RN RN mb9 Melissa Fields RN RN nj1 Corrections: (The following items were deleted from the chart) 13:33 13:31 Constitutional: Negative for fever, chills, and weight loss, kb kb
[2023-04-27] MEDS ORDERED: CODEINE 30MG/APAP 300MG TAB ONE (17:42)
[2023-04-27 18:20] VITALS: O2SAT 100
[2023-04-27 18:26] VITALS: BP 121/89; TEMP 98.8
[2023-04-27 21:03] LABS: Platelet Estimate ADEQ; White Blood Cell Scan OK (OK)
[2023-04-27 21:04] LABS: Anisocytosis 2+; Blood Morphology Comment NOTED (NOT SEEN); Hypochromasia 2+; Ovalocytes 1+; Poikilocytosis 1+
== END 2023-04-27 17:20 | disposition home or self-care (01) ==
LOC: ER 12:33
DX: J10.1 Influenza due to other identified influenza virus with other respiratory manifestations (principal); R10.10 Upper abdominal pain, unspecified; Z11.52 Encounter for screening for COVID-19; Z88.8 Allergy status to other drugs, medicaments and biological substances
CPT/HCPCS: 96361; 85025; 36415; 83690; 80053; 76705; 96375; 96374; 99284; J2765; J2405; J7030

== ENCOUNTER → 2024-04-11 | Emergency (ER) | payer BC ==
--- NOTE | 2024-04-11 19:01 | ER ---
Nurse's Notes [facility] Name: Anastasia Wiseman Age: 43 yrs Sex: Female : 1980 Arrival Date: 04/11/2024 Time: 18:16 Bed Waiting Private MD: Diagnosis: ED Course: 04/11 18:45 Patient arrived in ED. ph Administered Medications: No medications were administered Outcome: 19:01 Patient left the ED. ss Signatures: Deyanira Silva RN RN Evy Cote RN RN ph
== END ==
LOC: ER 18:16
DX: Z02.9 Encounter for administrative examinations, unspecified (principal)